=== PATIENT | male | born 1975 | race Caucasian/White ===

== ENCOUNTER 2020-10-31 20:52 | Emergency (ER) | payer SELFPAY ==
[2020-10-31] MEDS ORDERED: LIDOCAINE HCL-MPF 2% 5ML VIAL ONE (21:01)
[2020-10-31] MEDS ORDERED: CEFAZOLIN SODIUM 1 GM VIAL ONE ×2 (21:02→21:04)
[2020-10-31] MEDS ORDERED: 0.9%NACL 100ML 100 ML IV ONE (21:03)
[2020-10-31] MEDS ORDERED: LIDOCAINE HCL 400MG/20ML VIAL ONE (21:05)
[2020-10-31 21:07] LABS: BASOPHILS % (AUTO) 1.1 % (0.0-5.0); EOSINOPHILS % (AUTO) 1.5 % (0.0-8.0); HEMATOCRIT 36.9 % (42-54); LYMPHOCYTES % (AUTO) 29.8 % (21.0-51.0); MEAN CORPUSCULAR HEMOGLOBIN 29.4 pg (27.0-33.0); MEAN CORPUSCULAR HGB CONC 33.9 g/dL (32.0-36.0); MEAN CORPUSCULAR VOLUME 86.8 fL (79-99); MONOCYTES % (AUTO) 7.3 % (3.0-13.0); NEUTROPHILS % (AUTO) 59.7 % (40.0-77.0); PLATELET COUNT (AUTO) 295 K/uL (130-400); RED BLOOD CELL COUNT(AUTO) 4.25 MIL/uL (4.50-6.20); RED CELL DISTRIBUTION WIDTH 12.3 % (11.0-15.5); WHITE BLOOD COUNT (AUTO) 10.8 K/uL (4.8-10.8)
[2020-10-31 21:21] LABS: CREATININE 0.9 mg/dL (0.5-1.5); POTASSIUM 3.6 mmol/L (3.5-5.1)
[2020-10-31 21:26] LABS: ALBUMIN 3.6 g/dL (3.5-5.0); BILIRUBIN,TOTAL 0.2 mg/dL (0.2-1.0)
[2020-10-31] MEDS ORDERED: KETOROLAC 30MG VIAL (30MG/ML) ONE (21:26)
[2020-10-31] MEDS ORDERED: HYDROCODONE/ACETAMINOPHEN 5/325 MG TAB ONE (21:26)
[2020-10-31 21:40] LABS: PROTHROMBIN TIME 10.4 SEC (9.6-11.6)
== END 2020-10-31 21:35 | disposition home or self-care (01) ==
LOC: EDH 20:52
DX: S41.112A Laceration without foreign body of left upper arm, initial encounter (principal); Z72.0 Tobacco use; Y08.89XA Assault by other specified means, initial encounter; Y93.89 Activity, other specified; Y92.89 Other specified places as the place of occurrence of the external cause; Y99.8 Other external cause status
CPT/HCPCS: 12032; 36415; 80053; 85025; 85610; 85730; 96365; 99284; J0690 ×2; J1885; J3490 ×2

== ENCOUNTER 2025-02-11 19:26 | Emergency (ER) | payer BC ==
[~2025-02-11] VITALS: Ht 175.3 cm; Wt 82.6 kg
--- NOTE | 2025-02-11 19:50 | ERN ---
ED Note History of Present Illness Stated Complaint: SWOLLEN ELBOW AND LEG,FEVER Chief Complaint: Abscess Time Seen by MD: 19:32 Dictation: 49-YEAR-OLD MALE WITH A PAST MEDICAL HISTORY PRESENTS TO THE ER COMPLAINING OF LEFT ELBOW PAIN, REDNESS, INFECTION. STATED THAT 1 WEEK AGO HE HAD A TORN STICK ON HIS LEFT ELBOW, HE HAS BEEN TAKING AMOXICILLIN OUTPATIENT WITHOUT IMPROVEMENT. REASON WHY HE CAME TO THE ER TODAY. Allergies: Coded Allergies: No Known Allergies (Unverified Allergy, Unknown, 11/01/20) Past Medical History Past Medical History: No Pertinent History Surgical History: None Review of System Dictation NEGATIVE EXCEPT PER HPI CONSTITUTIONAL: NEGATIVE FOR FEVER,CHILLS, AND WEIGHT LOSS EYES: NEGATIVE FOR INJURY, PAIN,REDNESS, AND DISCHARGE ENT: NEGATIVE FOR INJURY,PAIN OR SWELLING CARDIOVASCULAR: DENIES CHEST PAIN, PALPITATIONS, AND EDEMA RESPIRATORY: NEGATIVE FOR SHORTNESS OF BREATH, COUGH, AND WHEEZING, ABDOMEN/GI: NEGATIVE FOR ABDOMINAL PAIN, NAUSEA, VOMITING, DIARRHEA, AND CONSTIPATION BACK: NEGATIVE FOR INJURY AND PAIN : NEGATIVE FOR INJURY, BLEEDING AND DISCHARGE MS/EXTREMITY: LEFT ELBOW PAIN SKIN: DISCOLORATION OF LEFT ELBOW WITH A SWELLING NEURO: NEGATIVE FOR HEADACHE, WEAKNESS, NUMBNESS, TINGLING, AND SEIZURE PSYCH: NEGATIVE FOR SUICIDE IDEATION, HOMICIDAL IDEATION, AND HALLUCINATIONS Initial Vital Sign VS Vital Signs Date Time Temp Pulse Resp B/P (MAP) Pulse Ox O2 Delivery O2 Flow Rate FiO2 02/11/25 19:30 99.1 105 20 138/87 96 Room Air Physical Exam Dictation GENERAL: AWAKE, ALERT, NAD HEAD/FACE: NORMOCEPHALIC, ATRAUMATIC EYES: PERRL, EOMI, VISION AT BASELINE ENT: ORAL CAVITY CLEAR, TMS CLEAR, NO SIGNS OF INFECTION NECK: TRACHEA MIDLINE, SUPPLE, NO NUCHAL RIGIDITY CARDIOVASCULAR: RRR, NORMAL S1/S2, NO MRGS, NO JVD RESPIRATORY: CTAB, NO RESPIRATORY DISTRESS, NO RALES OR WHEEZES ABDOMEN: SOFT , NO TENDER SKIN: LEFT ELBOW WARM, ERYTHEMA PRESENT TO THE LEFT ELBOW, EDEMA OF LEFT ELBOW MS/EXTREMITY: PULSES EQUAL, NO CYANOSIS, NEUROVASCULAR INTACT, FROM NEURO: COAX4, GCS 15, STRENGTH 5/5, CN 2-12 INTACT, NORMAL CEREBELLAR EXAM, NORMAL GAIT, PSYCH: NORMAL BEHAVIOR, MOOD, AND AFFECT NORMAL Results (Laboratory/Radiology) Laboratory/Radiology Laboratory Tests Test 02/11/25 20:06 White Blood Count 15.2 K/uL (4.8-10.8) H Red Blood Count 4.79 MIL/uL (4.50-6.20) Hemoglobin 14.1 g/dL (14.0-18.0) Hematocrit 42.9 % (42-54) Mean Corpuscular Volume 89.6 fL (79-99) Mean Corpuscular Hemoglobin 29.4 pg (27.0-33.0) Mean Corpuscular Hemoglobin Concent 32.9 g/dL (32.0-36.0) Red Cell Distribution Width 12.6 % (11.0-15.5) Platelet Count 276 K/uL (130-400) Mean Platelet Volume 10.8 fL (7.5-10.5) H Immature Granulocyte % (Auto) 0.7 % (0-1) Neutrophils (%) (Auto) 80.7 % (40.0-77.0) H Lymphocytes (%) (Auto) 13.2 % (21.0-51.0) L Monocytes (%) (Auto) 4.3 % (3.0-13.0) Eosinophils (%) (Auto) 0.5 % (0.0-8.0) Basophils (%) (Auto) 0.6 % (0.0-5.0) Neutrophils # (Auto) 12.3 K/uL (1.8-7.7) H Lymphocytes # (Auto) 2.0 K/uL (1.0-4.8) Monocytes # (Auto) 0.7 K/uL (0.1-1.0) Eosinophils # (Auto) 0.08 K/uL (0.00-0.70) Basophils # (Auto) 0.09 K/uL (0.00-0.20) Absolute Immature Granulocyte (auto 0.10 K/uL (0-1) Nucleated Red Blood Cells 0.0 % (0.0-0.19) Sodium Level 141 mmol/L (136-145) Potassium Level 3.6 mmol/L (3.5-5.1) Chloride Level 104 mmol/L (101-111) Carbon Dioxide Level 29 mmol/L (21-32) Blood Urea Nitrogen 20 mg/dL (7-18) H Creatinine 0.9 mg/dL (0.5-1.3) Glomerular Filtration Rate Calc 105 mL/min (>90) Random Glucose 144 mg/dL (70-105) H Lactic Acid Level 1.1 mmol/L (0.8-2.5) Total Calcium 9.0 mg/dL (8.5-10.1) ED Course ED Course Orders Procedure Category Date Status Time Cbc With Differential LAB 02/11/25 Complete 19:38 Basic Metabolic Panel LAB 02/11/25 Complete 19:38 Lactic Acid LAB 02/11/25 Complete 19:38 Ceftriaxone 2gm Vial PHA 02/11/25 Complete (Rocephin 2gm Inj) 20:00 Elbow Comp 3+Vws Lt RAD 02/11/25 Taken 19:43 Vancomycin 1g/250ml PHA 02/11/25 Complete Kit (Vancomycin 1g/2 20:00 Acetaminophen 500mg PHA 02/11/25 Complete Tab (Tylenol 500mg T 20:00 Ibuprofen 600 Mg PHA 02/11/25 Complete Tablet (Motrin) 20:00 0.9%Nacl 1000ml (Ns PHA 02/11/25 Complete 1000ml) 20:30 Current Medications Medications (Trade) Dose Ordered Sig/Vivi Route PRN Reason Start Time Stop Time Status Last Admin Dose Admin Acetaminophen (TYLenol 500MG TAB) 500 mg ONCE ONCE PO 02/11/25 20:00 02/11/25 20:01 DC 02/11/25 21:13 Ceftriaxone Sodium (Rocephin 2gm Inj) 2 gm ONCE ONCE IVPB 02/11/25 20:00 02/11/25 20:01 DC 02/11/25 21:13 Ibuprofen (moTRIN) 600 mg ONCE ONCE PO 02/11/25 20:00 02/11/25 20:01 DC 02/11/25 21:13 Sodium Chloride 1,000 ml @ 0 mls/hr ONCE ONCE IV 02/11/25 20:30 02/11/25 20:31 DC 02/11/25 21:12 Vancomycin HCl (Vancomycin 1g/ 250ml Kit) 1 gm ONCE ONCE IV 02/11/25 20:00 02/11/25 20:01 DC 02/11/25 21:13 Vital Signs Date Time Temp Pulse Resp B/P (MAP) Pulse Ox O2 Delivery O2 Flow Rate FiO2 02/11/25 19:30 99.1 105 20 138/87 96 Room Air Medical Decision Making MDM 49-YEAR-OLD MALE WITH LEFT ELBOW INFECTION X1 WEEK. REPORTS BEEN STICK BY A TORN. FAIL OUTPATIENT TREATMENT WITH THE AMOXICILLIN. -LEFT ELBOW ABSCESS -LEFT ELBOW CELLULITIS -SIRS ORDERED CBC, BNP, LACTIC ACID, BLOOD CULTURES X-RAY OF LEFT ELBOW--> I DO NOT SEE ANY GAS FORMATION. IV ANTIBIOTIC CEFTRIAXONE/VANCOMYCIN GIVEN I OFFER PATIENT TO STAY FOR IV ANTIBIOTIC TREATMENT, BUT PATIENT SAID THAT HE NEEDS TO GO HOME. HE PREFERRED TO CONTINUE WITH ORAL ANTIBIOTICS. I WILL SEND THE PATIENT HOME, BUT I HAVE RECOMMENDED HIM TO FOLLOW UP WITH THE PRIMARY CARE PHYSICIAN NEXT 24 HOURS, I EXPLAINED TO HIM THAT POSSIBLE HE YOU NEED A I AND D IN THE NEXT 48 HOURS IF WE SEE INFORMATION OF COLLECTION OF PUS. ALSO I EXPLAINED TO HIM THAT SINCE THE EFFEXOR IS CLOSE TO HIS ARTICULATION THAT IS A HIGH RISK FOR INFECTION INSIDE OF ARTICULATION NEEDING IV ANTIBIOTICS. PATIENT STATES THAT HE UNDERSTOOD THE RISK BUT DOES NOT WANT TO STAY FOR IV ANTIBIOTICS. HE STATED THAT HE WILL FOLLOW UP WITH THE PRIMARY CARE PHYSICIAN. DX & DISP Disposition: Discharge Departure Impression: Primary Impression: Cellulitis of left elbow Additional Impression: SIRS (systemic inflammatory response syndrome) Condition: Stable Scripts Acetaminophen (Tylenol) 500 Mg Tab 1 TAB PO Q6HPRN PRN for pain or fever for 7 Days, #30 TAB 0 Refills Prov: JAIRO CEDILLO MD 02/11/25 Ibuprofen (Ibuprofen) 400 Mg Tablet 1 TAB PO Q6HPRN PRN for pain or fever for 5 Days, #20 TAB 0 Refills Prov: JAIRO CEDILLO MD 02/11/25 Sulfamethoxazole/Trimethoprim (Bactrim Ds Tablet) 800 Mg-160 Mg Tablet 1 TAB PO BID for 7 Days, #14 TAB 0 Refills Prov: JAIRO CEDILLO MD 02/11/25 Clindamycin HCl (Clindamycin HCl) 300 Mg Capsule 1 CAP PO TID for 10 Days, #30 CAP 0 Refills Prov: JAIRO CEDILLO MD 02/11/25 Additional Instructions: MUST FOLLOW UP IN 24 HOURS WITH PCP Referrals: SELF,REFERRAL (PCP) JAIRO CEDILLO MD February 11, 2025 19:50
[2025-02-11 20:14] LABS: BASOPHILS # (AUTO) 0.09 K/uL (0.00-0.20); BASOPHILS % (AUTO) 0.6 % (0.0-5.0); EOSINOPHILS # (AUTO) 0.08 K/uL (0.00-0.70); EOSINOPHILS % (AUTO) 0.5 % (0.0-8.0); HEMATOCRIT 42.9 % (42-54); LYMPHOCYTES % (AUTO) 13.2 % (21.0-51.0); MEAN CORPUSCULAR HEMOGLOBIN 29.4 pg (27.0-33.0); MEAN CORPUSCULAR HGB CONC 32.9 g/dL (32.0-36.0); MEAN CORPUSCULAR VOLUME 89.6 fL (79-99); MONOCYTES # (AUTO) 0.7 K/uL (0.1-1.0); MONOCYTES % (AUTO) 4.3 % (3.0-13.0); NEUTROPHILS # (AUTO) 12.3 K/uL (1.8-7.7); NEUTROPHILS % (AUTO) 80.7 % (40.0-77.0); PLATELET COUNT (AUTO) 276 K/uL (130-400); RED BLOOD CELL COUNT(AUTO) 4.79 MIL/uL (4.50-6.20); RED CELL DISTRIBUTION WIDTH 12.6 % (11.0-15.5); WHITE BLOOD COUNT (AUTO) 15.2 K/uL (4.8-10.8)
[2025-02-11 20:30] LABS: CREATININE 0.9 mg/dL (0.5-1.3); POTASSIUM 3.6 mmol/L (3.5-5.1)
[2025-02-11] MEDS: 0.9%NACL 1000ML 1,000 ML IV ONE (21:12)
[2025-02-11] MEDS: acetaMINOPHEN 500 MG TABLET PO ONE (21:13)
[2025-02-11] MEDS: ibuPROFEN 600 MG TABLET PO ONE (21:13)
[2025-02-11] MEDS: VANCOMYCIN KIT 1 GM/250 ML IV.KIT IV ONE (21:13)
[2025-02-11] MEDS: cefTRIAXone 2GM VIAL IVPB ONE (21:13)
[2025-02-11] MEDS ORDERED: SULF1TAB42 PO (22:23)
[2025-02-11] MEDS ORDERED: ACET-66 PO (22:23)
[2025-02-11] MEDS ORDERED: IBUP-2076 PO (22:23)
[2025-02-11] MEDS ORDERED: CLIN-141 PO (22:23)
--- NOTE | 2025-02-11 22:26 | NUR ---
DISCHARGE PENDING IV ANTIBIOTIC TO COMPLETE INFUSION
--- NOTE | 2025-02-11 23:34 | NUR ---
IV ANTIBIOTIC INFUSION DISCONTINUED PER PATIENT REQUEST, PATIENT HAS CHILD AT HOME AND [employer] CE[employer]AR HAS TO GO TO WORK. PER PATIENT, [employer] T[employer] CELLAR IS ANGRY AT HIM BECAUSE HE IS TAKING TOO LONG.
[2025-02-11 23:40] VITALS: BP 128/88; PULSE 92; RESP 16; TEMP 98.8; O2SAT 97
--- NOTE | 2025-02-12 09:18 | HMCIMG ---
ELBOW COMP 3+VWS LT HISTORY: Abscess COMPARISON: None TECHNIQUE: 3 images of left elbow were obtained. FINDINGS: There is no acute displaced fracture or dislocation. There is soft tissue swelling. Evaluation for abscess is limited with radiographs. Degenerative changes are seen. IMPRESSION: 1. Findings as described above.
== END 2025-02-11 23:40 | disposition home or self-care (01) ==
LOC: EDH 19:26
DX: L03.114 Cellulitis of left upper limb (principal); R65.10 Systemic inflammatory response syndrome (SIRS) of non-infectious origin without acute organ dysfunction
CPT/HCPCS: 99284; 96365; 96366; 80048; 85025; 83605; 36415; 73080; 96368; J0696; J3370